=== PATIENT | male | born 1975 | race African-American/Black ===

== ENCOUNTER 2024-08-30 16:47 | Inpatient (IN) | payer OTHER ==
[2024-08-30 17:10] VITALS: BMI 20.9
[2024-08-30] MEDS ORDERED: ACETAMINOPHEN 325 MG TABLET (FP) PO PRN (17:30)
[2024-08-30] MEDS ORDERED: IBUPROFEN 400 MG TABLET (FP) PO PRN (17:30)
[2024-08-30] MEDS ORDERED: POLYETHYLENE GLYCOL (HEALTHYLAX) 3350 17 GM PACKET PO PRN (17:30)
[2024-08-30] MEDS ORDERED: ONDANSETRON *ODT* 4 MG TABLET SL PRN (17:30)
[2024-08-30] MEDS ORDERED: BENZOCAINE/MENTHOL (CHLORASEPTIC ) LOZENGE MM PRN (17:30)
[2024-08-30] MEDS ORDERED: P-EPHED 60MG/TRIPROLIDI 2.5MG TABLET PO PRN (17:30)
[2024-08-30] MEDS ORDERED: BISMUTH SUBSALICYLATE 524 MG/30 ML PO PRN (17:30)
[2024-08-30] MEDS ORDERED: LOPERAMIDE HCL 2 MG CAPSULE PO PRN (17:30)
[2024-08-30] MEDS ORDERED: IBUPROFEN 600 MG TABLET (FP) PO PRN (17:30)
[2024-08-30] MEDS ORDERED: NICOTINE POLACRILEX 2 MG LOZENGE BC PRN (17:30)
[2024-08-30] MEDS ORDERED: MAGNESIUM HYDROX 2400MG/30ML ORAL SUSPENSION 30 ML CUP PO PRN (17:30)
[2024-08-30] MEDS ORDERED: DICYCLOMINE HCL 10 MG CAPSULE PO PRN (17:30)
[2024-08-30] MEDS ORDERED: guaiFENesin 600 MG TABLET.ER (FP) PO PRN (17:30)
[2024-08-30] MEDS ORDERED: NICOTINE POLACRILEX 2 MG GUM BUC PRN (17:30)
[2024-08-30] MEDS ORDERED: BENZONATATE 200 MG CAPSULE PO PRN (17:30)
[2024-08-30] MEDS ORDERED: NALOXONE (NARCAN) HCL 4 MG/0.1 ML SPRAY NS PRN (17:30)
[2024-08-30] MEDS ORDERED: methaDONE HCL 10 MG TABLET (FOR DETOX USE ONLY) PO ONE (18:15)
[2024-08-30] MEDS ORDERED: diazePAM 5 MG TABLET ONE (20:22)
[2024-08-30] MEDS ORDERED: methaDONE HCL 10 MG TABLET (FOR DETOX USE ONLY) ONE (20:23)
[2024-08-30] MEDS: methaDONE HCL 10 MG TABLET (FOR DETOX USE ONLY) PO ONE (20:35)
[2024-08-30] MEDS: diazePAM 5 MG TABLET PO PRN (20:38)
[2024-08-30] MEDS: MELATONIN 5 MG TABLETS PO SCH (22:28)
[2024-08-30] MEDS: THIAMINE 100 MG TABLET PO SCH (22:28)
[2024-08-30] MEDS: BUPRENORPHINE/NALOXONE 0.5 MG/0.125 MG FILM SL ONE (22:28)
[2024-08-30] MEDS: METHOCARBAMOL 500 MG TABLET PO PRN (22:28)
[2024-08-31] MEDS: PRENATAL VITAMINS W/ FOLIC ACID TABLET (FP) PO SCH (09:40)
[2024-08-31] MEDS: BUPRENORPHINE/NALOXONE 0.5 MG/0.125 MG FILM SL SCH (11:03)
[2024-08-31] MEDS: chlordiazePOXIDE HCL 25 MG CAPSULE PO SCH (12:07)
[2024-08-31] MEDS: amLODIPine BESYLATE 10 MG TABLET (FP) PO SCH (12:08)
[2024-08-31 12:24] LABS: HEMATOCRIT 39.8 % (40.1-51.0); HEMOGLOBIN 12.6 g/dL (13.7-17.5); MCHC 31.7 g/dl (32.3-36.5); MEAN CELL VOLUME 84.9 fl (79.0-92.2); MEAN PLT VOLUME 9.6 fl (9.4-12.4); PLATELET COUNT 247 x10^3/uL (163-337); RDW 16.1 % (12.1-15.9)
[2024-08-31 12:28] LABS: CHLORIDE 107 mmol/L (98-107); POTASSIUM 4.2 mmol/L (3.5-5.1); SODIUM 141 mmol/L (136-145)
[2024-08-31 12:37] LABS: BILIRUBIN,TOTAL 0.9 mg/dL (0.2-1)
[2024-08-31 12:38] LABS: ALK PHOS 64 U/L (45-117)
[2024-08-31 12:39] LABS: TOT PROT 6.5 g/dl (6.4-8.2)
[2024-08-31 12:50] LABS: CALCIUM 8.9 mg/dL (8.5-10.1)
[2024-08-31 12:51] LABS: ALBUMIN 3.6 g/dl (3.4-5.0); ANION GAP 5 mmol/L (4-13); BLOOD UREA NITROGEN 6.8 mg/dL (7-18); CO2 29 mmol/L (21-32); GLUCOSE,RANDOM 85 mg/dL (74-106)
[2024-08-31 12:53] LABS: SGPT/ALT 9 U/L (13-61)
[2024-08-31 12:54] LABS: SGOT/AST 8 U/L (15-37)
[2024-08-31] MEDS: chlordiazePOXIDE HCL 25 MG CAPSULE PO PRN (19:40)
[2024-08-31] MEDS: SUVOREXANT 10 MG TABLET PO PRN (22:37)
[2024-09-01] MEDS: chlordiazePOXIDE HCL 25 MG CAPSULE PO SCH (05:29)
[2024-09-01] MEDS: methaDONE HCL 10 MG TABLET (FOR DETOX USE ONLY) PO ONE (10:00)
[2024-09-01] MEDS: BUPRENORPHINE/NALOXONE 2 MG/0.5 MG FILM PACKET SL SCH (10:00)
[2024-09-01] MEDS: MAG HYDROX/AL HYDROX/SIMETH 30 ML UNIT-DOSE CUP PO PRN (10:06)
[2024-09-02] MEDS: chlordiazePOXIDE HCL 10 MG CAPSULE PO SCH (05:42)
[2024-09-02] MEDS: BUPRENORPHINE/NALOXONE 4 MG/1 MG FILM PACKET SL SCH (10:59)
[2024-09-02] MEDS: chlordiazePOXIDE HCL 10 MG CAPSULE PO PRN (14:18)
[2024-09-03] MEDS: chlordiazePOXIDE HCL 10 MG CAPSULE PO SCH (05:28)
[2024-09-03] MEDS: methaDONE HCL 10 MG TABLET (FOR DETOX USE ONLY) PO ONE (09:59)
[2024-09-03] MEDS: hydrOXYzine PAMOATE 25 MG CAPSULE (FP) PO PRN (09:59)
[2024-09-03] MEDS: BUPRENORPHINE/NALOXONE 8 MG/2 MG FILM PACKET SL SCH (10:00)
[2024-09-03 12:31] LABS: ABSOLUTE IMMATURE GRANULOCYTES 0.14 x10^3/uL (0.0-0.031); BASOPHILS # 0.06 x10^3/uL (0.01-0.08); EOSINOPHILS # 0.34 x10^3/uL (0.04-0.54); HEMATOCRIT 42.2 % (40.1-51.0); HEMOGLOBIN 13.3 g/dL (13.7-17.5); MCHC 31.5 g/dl (32.3-36.5); MEAN CELL VOLUME 85.3 fl (79.0-92.2); MEAN PLT VOLUME 9.7 fl (9.4-12.4); MONOCYTE # 0.77 x10^3/uL (0.30-0.82); MONOCYTE % 9.1 % (5.3-12.2); PLATELET COUNT 254 x10^3/uL (163-337); RDW 15.9 % (12.1-15.9)
[2024-09-03] MEDS: SUVOREXANT 10 MG TABLET PO SCH (23:14)
[2024-09-04] MEDS: chlordiazePOXIDE HCL 10 MG CAPSULE PO ONE (05:42)
[2024-09-04] MEDS: BUPRENORPHINE/NALOXONE 8 MG/2 MG FILM PACKET SL SCH (09:24)
[2024-09-04 09:55] VITALS: BP 100/61; PULSE 86; RESP 16; TEMP 97.8
== END 2024-09-04 10:33 | disposition home or self-care (01) | DRG 773 ==
LOC: YASAS 16:47 → Y6N 20:44
PROVIDERS: ADMIT Allergy & Immunology; ATTEND Allergy & Immunology
PROC: HZ2ZZZZ Detoxification Services for Substance Abuse Treatment (ICD-10-PCS; principal; 2024-08-30)
DX: F11.23 Opioid dependence with withdrawal (principal); F10.230 Alcohol dependence with withdrawal, uncomplicated; F12.20 Cannabis dependence, uncomplicated; F17.210 Nicotine dependence, cigarettes, uncomplicated; F19.282 Other psychoactive substance dependence with psychoactive substance-induced sleep disorder; F19.280 Other psychoactive substance dependence with psychoactive substance-induced anxiety disorder; F19.24 Other psychoactive substance dependence with psychoactive substance-induced mood disorder; I10 Essential (primary) hypertension; R63.6 Underweight; Z68.21 Body mass index [BMI] 21.0-21.9, adult
CPT/HCPCS: 36415; 80053; 80305; 80307; 85025; 85027; 86780; 93005; 93010